=== PATIENT | female | born 1950 | race Two or more races ===

== ENCOUNTER 2018-11-27 02:43 | Emergency (ER) | payer MEDICARE, OTHER ==
[~2018-11-27] VITALS: Ht 160 cm; Wt 65.3 kg
[2018-11-27] MEDS ORDERED: KETOROLAC TROMETHAMINE 60 MG/2 ML VIAL IM ONE (03:45)
--- NOTE | 2018-11-27 04:11 | Diagnostic Imaging Report ---
History: Pain Comparison studies: None Technique: Axial images were obtained through the cervical region.. Coronal and sagittal images reconstructed from the axial data. Dose modulation, iterative reconstruction, and/or weight based adjustment of the mA/kV was utilized to reduce the radiation dose to as low as reasonably achievable. Intravenous contrast: None Findings: Fractures: None. Soft tissues: No gross abnormalities. Atlantoaxial articulation: Intact. Alignment: Normal lordosis. No scoliosis. Cervicomedullary junction: No abnormalities. The foramen magnum is patent. Vertebrae: No infection or neoplasm. Degenerative changes: Mild at the atlantoaxial articulation. Moderately degenerated discs at C3-4 and C5-6 Degenerated and/or fused facets from C2 through T1 Mild bilateral foraminal stenosis at C4-5, C5-6 due to facet and uncoarthrosis. Patent spinal canal. IMPRESSION: 1. No acute abnormalities. No fractures 2. Cannot adequately evaluate for ligament, spinal cord and or vascular abnormalities. 3. Degenerative changes as described Signed by: Dr. Phani Carranza M.D. on 11/27/2018 4:08 AM
[2018-11-27] MEDS ORDERED: ULTRAM50 MG PO (05:06)
--- NOTE | 2018-11-27 05:59 | NUR ---
verification in patients allergy, patient is not allergric to tramadol-ketorolac, patient is allergic to tramadol-ultram, made aware for new script
[2018-11-27] MEDS ORDERED: DIAZEPAM 5 MG TAB PO SCH (09:00)
== END 2018-11-27 06:23 | disposition home or self-care (01) ==
LOC: ER 02:43
DX: M54.2 Cervicalgia (principal); S16.1XXA Strain of muscle, fascia and tendon at neck level, initial encounter; Y93.84 Activity, sleeping
CPT/HCPCS: 72125; 99283; J1885